=== PATIENT | female | born 1950 | race American Indian/Alaskan Native ===

== ENCOUNTER → 2016-11-18 | Outpatient (CLI) | payer BC, OTHER ==
--- NOTE | 2016-11-18 12:56 | US ---
EXAMINATION: Carotid US with arthur scale and duplex imaging. HISTORY: Question stenosis FINDINGS: Ultrasound examination of bilateral cervical carotid arteries was performed using arthur scale and dup flower imaging. Mild scattered atheromatous plaque is noted within the carotid arteries. Antegrade fl ow is noted within the vertebrals. These are the peak velocities in cm per second (systole), right and left respectively, by a comma: CCA (common carotid artery) - 86, 101 ICA (internal carotid artery) - 87, 100 ECA (External carotid artery) - 153, 68 ICA/CCA systolic ratio Right - 1.0 Left - 1.3 IMPRESSION: Mild scattered atheromatous plaque without significant elevated velocities identified bilaterally.
--- NOTE | 2016-11-18 18:26 | MY ---
EXAMINATION: Bilateral digital mammography utilizing CAD. HISTORY: Comparison is made to previous studies dated 08/07/2015, 06/15/2014. FINDINGS: Bilateral predominantly fatty breast tissue. No suspicious calcifications, masses or architectural distortions. No pathologic appearing lymph nodes, no abnormal skin thickening or nipple inversion. CAD highlighted regions appear normal at this time. IMPRESSION: BI-RADS category I - negative mammogram. Continued screening according to ACR-ACS guidelines suggested. THE FALSE-NEGATIVE RATE OF MAMMOGRAM IS APPROXIMATELY 10%. MANAGEMENT OF A PALPABLE ABNORMALITY MUST BE BASED UPON CLINICAL GROUNDS. SENSITIVITY FOR DETECTION OF ABNORMALITIES IN DENSE BREASTS IS LOW. NOTE: A letter will be sent to the patient regarding findings. [facility] -- [place] [phone] - FAX [phone] [facility]
== END | disposition home or self-care (01) ==
LOC: MW.MAM 10:10
PROVIDERS: ATTEND Family Medicine
DX: R92.8 Other abnormal and inconclusive findings on diagnostic imaging of breast (principal); E78.5 Hyperlipidemia, unspecified; I65.29 Occlusion and stenosis of unspecified carotid artery
CPT/HCPCS: 93880; G0204